=== PATIENT | male | born 1950 | race Caucasian/White ===

== ENCOUNTER 2021-07-19 00:38 | Emergency (ER) | payer MEDICARE, OTHER ==
[~2021-07-19] VITALS: Ht 175.3 cm; Wt 83.2 kg
[2021-07-19 00:40] VITALS: BP 130/90
[2021-07-19] MEDS ORDERED: TAMS-13 PO (00:49)
[2021-07-19] MEDS ORDERED: LOSA25TA21 PO (00:49)
[2021-07-19] MEDS ORDERED: LEVO25TA9 PO (00:49)
[2021-07-19] MEDS ORDERED: PHENYLEPHRINE/SHK LV/MIN OIL/PET 57 GM OINTMENT TP ONE (03:15)
== END 2021-07-19 04:29 | disposition home or self-care (01) ==
LOC: EMS 00:39
DX: K64.4 Residual hemorrhoidal skin tags (principal); Z88.2 Allergy status to sulfonamides; Z79.899 Other long term (current) drug therapy
CPT/HCPCS: 99282; Z7502; Z7610

== ENCOUNTER 2022-11-24 08:47 | Emergency (ER) | payer MEDICARE, OTHER ==
[~2022-11-24] VITALS: Ht 177.8 cm; Wt 66.3 kg
[~2022-11-24 08:47] MED LIST: LEVO25TA9 PO; LOSA-381 PO; TAMS-13 PO
[2022-11-24] MEDS ORDERED: EPINEPHrine 1:10,000 [1 MG/10 ML] SYRINGE IVP ONE (08:51)
[2022-11-24 09:42] VITALS: BP 1/1
== END 2022-11-24 11:22 ==
LOC: EMS 08:50
DX: I46.9 Cardiac arrest, cause unspecified (principal); Z90.49 Acquired absence of other specified parts of digestive tract; Z88.2 Allergy status to sulfonamides
CPT/HCPCS: 99285; 92950; 31500; J0171